=== PATIENT | male | born 1995 | race Two or more races ===

== ENCOUNTER 2018-07-10 12:34 | Outpatient (CLI) | payer OTHER | END 2018-07-10 12:51 | disposition home or self-care (01) | LOC: LAB 12:34 | DX: M05.44 Rheumatoid myopathy with rheumatoid arthritis of hand (principal); G56.03 Carpal tunnel syndrome, bilateral upper limbs ==